=== PATIENT | male | born 2000 | race Caucasian/White ===

== ENCOUNTER 2023-01-03 10:04 | Emergency (ER) | payer OTHER, SELFPAY ==
--- NOTE | ~2023-01-03 | XR_ITS ---
EXAMINATION: Right shoulder and chest. HISTORY: Right posterior chest pain. COMPARISON: None. TECHNIQUE: Right shoulder 4 views. Chest 2 views. FINDINGS: CHEST: The lungs are fairly well-expanded and clear. The heart size and pulmonary vascularity is normal. No gross bony abnormality seen. Right shoulder: There is no visible acute fracture, dislocation or subluxation seen. No bony erosive changes. The soft tissues are normal. XR/XR chest 2V IMPRESSION: Unremarkable chest exam. Unremarkable right shoulder exam.
--- NOTE | ~2023-01-03 | XR_ITS ---
EXAMINATION: Right shoulder and chest. HISTORY: Right posterior chest pain. COMPARISON: None. TECHNIQUE: Right shoulder 4 views. Chest 2 views. FINDINGS: CHEST: The lungs are fairly well-expanded and clear. The heart size and pulmonary vascularity is normal. No gross bony abnormality seen. Right shoulder: There is no visible acute fracture, dislocation or subluxation seen. No bony erosive changes. The soft tissues are normal. XR/XR shoulder RT min 2V IMPRESSION: Unremarkable chest exam. Unremarkable right shoulder exam.
[2023-01-03 10:07] VITALS: BP 137/79; PULSE 63; RESP 18; TEMP 37.7; O2SAT 99; BMI 18.6
[2023-01-03 12:00] VITALS: BP 102/59; PULSE 56; RESP 18; O2SAT 99
--- NOTE | 2023-01-03 13:21 | ED.GENADULT ---
HPI - General Adult General Chief complaint: Back Pain/Injury Stated complaint: back pain Time Seen by Provider: 01/03/23 10:49 History of Present Illness HPI narrative: Patient complains of right upper back, right scapula and right shoulder pain worse with movement for the last several weeks without any known injury, no radiation of pain, no numbness weakness or tingling, denies any redness or swelling no fever no headaches no chest pain no shortness of breath, gradual onset, no fainting or feeling faint Related Data Previous Rx's Medication Instructions Recorded ibuprofen 600 mg tablet 600 mg PO Q6H PRN pain #20 tabs 01/03/23 Allergies Allergy/AdvReac Type Severity Reaction Status Date / Time No Known Allergies Allergy Verified 01/03/23 11:15 [facility] Past Medical History Source: nursing notes reviewed Social History Social History Advance Directives: No Advance Directives Information Provided: No Physical Exam ED Vital Signs: Vital Signs - 24 hr 01/03/23 10:07 01/03/23 12:00 Temperature 99.8 F Pulse Rate 63 56 Respiratory Rate 18 18 Blood Pressure 137/79 102/59 L Pulse Oximetry 99 99 Oxygen Delivery Method Room Air Room Air BMI result Body Mass Index 18.6 General appearance no acute distress Head is normocephalic atraumatic Neck is supple and nontender The right trapezius is nontender The chest is clear to auscultation bilateral with symmetric full equal breath sounds, no chest wall tenderness Abdomen soft nontender The back had tenderness around the edge of the scapula and subscapular area there was no midline tenderness, pain was reproduced with movement both extension abduction and external rotation of the shoulder, skin of the back was normal Extremities there was full range of motion x4 but the right shoulder was painful to extend painful to abduct and painful to externally rotate, neurovascular intact distal Other extremities were normal Neuro no focal motor sensory deficits Course Course Course Narrative: Patient with likely musculoskeletal pain in the right scapula and shoulder had negative shoulder x-ray, negative chest x-ray no pneumothorax no no acute abnormalities Well-appearing comfortable patient is discharged Discharge Plan Discharge Clinical Impression: Arthralgia of right shoulder region Patient Disposition: Home, Self-Care Additional Instructions: X-rays of chest and right shoulder were normal, pain is likely in muscles and tendons Follow with orthopedist as needed You can use Motrin or Tylenol as needed, activity as tolerated Return any worse condition or any concerns Prescriptions: New ibuprofen 600 mg tablet 600 mg PO Q6H PRN (Reason: pain) Qty: 20 0RF Referrals: Zach Rosa MD [Physician] - (Right shoulder pain/tendinitis) Stand Alone Forms: Work/School Release Discharge Date/Time: 01/03/23 13:30
== END 2023-01-03 13:30 | disposition home or self-care (01) ==
PROVIDERS: Emergency Provider Emergency Medicine
DX: M25.511 Pain in right shoulder (principal)
CPT/HCPCS: 71046; 73030; 99283